=== PATIENT | female | born 1950 | race Caucasian/White ===

== ENCOUNTER 2018-06-29 08:15 | Outpatient (CLI) | payer MEDICARE, OTHER ==
--- NOTE | 2018-06-29 10:13 | RAD ---
LEFT WRIST THREE VIEWS: HISTORY: Fall. Pain. COMPARISON: None. FINDINGS: There is degenerative change in the first carpometacarpal joint space. Additional degenerative dash e is noted in the scaphotrapezium articulation and the scaphotrapezoid articulation. No evidence of acute fractures. IMPRESSION: Degenerative changes, as described above. POS: [facility]
== END 2018-06-29 08:16 | disposition home or self-care (01) ==
LOC: RAD-FRANK 08:15
PROVIDERS: ATTEND Nurse Practitioner Family
DX: M25.532 Pain in left wrist (principal); M18.12 Unilateral primary osteoarthritis of first carpometacarpal joint, left hand

== ENCOUNTER 2019-09-11 07:52 | Outpatient (CLI) | payer MEDICARE, MEDICAID ==
--- NOTE | 2019-09-11 13:02 | CT ---
CT ABDOMEN AND PELVIS WITH IV CONTRAST: HISTORY: History of right-sided abdominal hernia, prior hernia repair, incisional hernia. COMPARISON: None. FINDINGS: Minimal right hemidiaphragm elevation. Borderline enlarged liver and spleen. Minimal pleural-based pa renchymal changes in the right and left lower lobes and right middle lobe and lingula. Somewhat irreg ularly shaped 1.2 x 1.7 cm in diameter subpleural nodule in the medial left lower lobe. Consider foll ow-up PET scan for further assessment. Three vessel coronary artery calcific disease. Status post cho lecystectomy without ductal dilatation. Approximately 4.4 cm in diameter duodenal diverticulum, proba kitty off the third portion of the duodenum. The visualized pancreas is unremarkable. The adrenal gland s are unremarkable. No renal calculus or acute obstruction. No solid or cystic renal mass. There i s evidence for some prior postoperative changes involving the anterior abdominal wall. Small fat-cont aining anterior abdominal wall hernia, near the level of the umbilicus, just to the right of midline. No evidence for bowel involvement. No intraperitoneal fluid. No adenopathy. No abscess. Status post hysterectomy. IMPRESSION: 1. Small fat-containing anterior abdominal wall hernia, near the level of the umbilicus, just to the right of midline. This fat-containing hernia measures approximately 1.2 cm in anterior-posterior dime nsion, 3 cm transversely and 3.2 cm in craniocaudal dimension. 2. A 1.2 x 1.7 cm in diameter nodule in the medial aspect of the left lower lobe. 3. Minimal pleural-based parenchymal changes bilaterally. 4. Borderline size liver and spleen. 5. No evidence for other significant acute process in the abdomen or pelvis. 6. Other findings as above. CODE T CODE LN POS: [facility]
== END 2019-09-11 07:53 | disposition home or self-care (01) ==
LOC: BICCT 07:52
PROVIDERS: ATTEND Surgery
DX: K43.2 Incisional hernia without obstruction or gangrene (principal); K43.9 Ventral hernia without obstruction or gangrene; R91.1 Solitary pulmonary nodule; J98.4 Other disorders of lung; I25.10 Atherosclerotic heart disease of native coronary artery without angina pectoris; Z90.49 Acquired absence of other specified parts of digestive tract; Z90.710 Acquired absence of both cervix and uterus
CPT/HCPCS: 74177; 82565

== ENCOUNTER 2022-06-24 09:29 | Emergency (ER) | payer MEDICARE, MEDICAID ==
[2022-06-24 10:17] LABS: #Basophils 0.1 thou/uL (0.0-0.2); #Eosinphils 0.2 thou/uL (0.0-0.7); #Lymphocytes 1.4 thou/uL (1.20-3.40); #Monocytes 0.4 thou/uL (0.11-0.59); #Neutrophils 4.1 thou/uL (1.40-6.50); %Lymphocytes 22.7 % (21.0-51.0); %Monocytes 6.5 % (0.0-10.0); %Neutrophils 65.8 % (42.0-75.0); Hemoglobin 14.5 g/dL (12.0-16.0); Mean Corpuscular HGB CONC 32.5 g/dL (32.0-36.0); Mean Corpuscular Hemoglobin 31.3 pg (27.0-31.0); Mean Corpuscular Volume 96.2 fL (78.0-98.0); Mean Platelet Volume 7.7 fL (7.4-10.4); Platelet Count 206 thou/uL (130-400); RBC Distribution Width 12.7 % (11.5-14.5); Red Blood Cell (RBC) Count 4.63 mill/uL (4.20-5.40); White Blood Cell (WBC) Count 6.2 thou/uL (4.8-10.8)
[2022-06-24 10:42] LABS: ALT (SGPT) 18 U/L (8-55); AST (SGOT) 18 U/L (5-34); Albumin 3.9 g/dL (3.4-4.8); Alkaline Phosphatase 66 U/L (40-110); Anion Gap 16 mmol/L (10-20); BUN (Urea Nitrogen) 17 mg/dL (9.8-20.1); Bilirubin, Total 0.7 mg/dL (0.2-1.2); Calc. Creatinine Clearance 0 mL/min (70-130); Calcium 9.5 mg/dL (7.8-10.44); Carbon Dioxide 24 mmol/L (23-31); Chloride 105 mmol/L (98-107); Estimated GFR 80; Globulin 3.2 g/dL (2.4-3.5); Glucose 137 mg/dL (83-110); Potassium 3.6 mmol/L (3.5-5.1); Protein, Total 7.1 g/dL (5.8-8.1); Sodium 141 mmol/L (136-145)
== END 2022-06-24 13:10 | disposition home or self-care (01) ==
LOC: ERS 09:29
DX: M79.604 Pain in right leg (principal); I83.93 Asymptomatic varicose veins of bilateral lower extremities; R06.02 Shortness of breath; E03.9 Hypothyroidism, unspecified
CPT/HCPCS: 71045; 80053; 83880; 84484; 85025; 85379

== ENCOUNTER 2023-03-17 09:53 | Outpatient (CLI) | payer OTHER, MEDICAID ==
[2023-03-17 11:05] LABS: #Basophils 0.1 10x3/uL (0.0-0.2); #Eosinphils 0.3 10x3/uL (0.0-0.5); #Monocytes 0.7 10x3/uL (0.0-1.1); #Neutrophils 4.8 10x3/uL (1.5-8.4); %Basophils 1.5 % (0.0-2.0); %Eosinophils 4.1 % (0.0-6.0); %Lymphocytes 19.9 % (18.0-47.0); %Monocytes 9.4 % (0.0-10.0); %Neutrophils 64.7 % (40.0-75.0); Hemoglobin 13.7 g/dL (12.0-15.5); Mean Corpuscular HGB CONC 32.2 g/dL (32.0-36.0); Mean Corpuscular Hemoglobin 30.2 pg (27.0-33.0); Mean Corpuscular Volume 93.8 fl (81.6-98.3); Mean Platelet Volume 9.8 fl (7.4-10.4); Platelet Count 226 10x3/uL (150-450); RBC Distribution Width 14.2 % (11.5-14.5); Red Blood Cell (RBC) Count 4.53 10x6/uL (3.90-5.03); White Blood Cell (WBC) Count 7.5 10x3/uL (3.5-10.5)
== END 2023-03-17 09:54 | disposition home or self-care (01) ==
LOC: LABBT 09:53
PROVIDERS: ATTEND Orthopaedic Surgery Hand Surgery
DX: Z01.818 Encounter for other preprocedural examination (principal); G56.02 Carpal tunnel syndrome, left upper limb; G56.22 Lesion of ulnar nerve, left upper limb
CPT/HCPCS: 85025; 93005; 93010